=== PATIENT | male | born 1940 | race Caucasian/White ===

== ENCOUNTER 2017-01-23 10:08 | Emergency (ER) | payer BC, OTHER ==
[2017-01-23 10:27] VITALS: BP 123/74; PULSE 65; TEMP 97.9; BMI 26.6
--- NOTE | 2017-01-23 10:52 | PDOC ---
History of Present Illness - General Chief Complaint: Injury Stated Complaint: FALL/ SWOLLEN RT FINGER Time Seen by Provider: 01/23/17 10:46 History Source: Patient - History of Present Illness Initial Comments: 01/23/17 11:34 Pt. is a R hand dominant 76 y/o male with a PMH of HLD, presenting to the ED today c/o R 3rd finger juanis. Pt. states that he was walking and tripped on the sidewalk yesterday. He landed with his hand outstretched and landed on the finger. Denies LOC, head trauma, weakness or dizziness. Pt. states that he used Motrin and ice to help with the swelling. Past History - Travel Traveled outside of the country in the last 30 days: No Close contact w/someone who was outside of country & ill: No - Past Medical History Home Medications: Ambulatory Orders NK [No Known Home Medication] 01/23/17 Hypercholesterolemia: Yes - Psycho/Social/Smoking Cessation Hx Anxiety: No Suicidal Ideation: No Smoking History: Never smoked Have you smoked in the past 12 months: No If you are a former smoker, when did you quit?: 1981 Information on smoking cessation initiated: No Hx Alcohol Use: No Drug/Substance Use Hx: No Substance Use Type: Alcohol Review of Systems - Review of Systems Able to Perform ROS?: Yes Is the patient limited Cypriot proficient: No Constitutional: No: Chills, Fever, Weakness Musculoskeletal: Yes: Joint Pain (R 3rd finger swelling and pain), Joint Swelling (R 3rd Finger PIP swelling) Integumentary: Yes: Other (Swelling of R 3rd finger) *Physical Exam - Vital Signs Last Vital Signs Temp Pulse Resp BP Pulse Ox 97.9 F 65 14 123/74 98 01/23/17 10:17 01/23/17 10:17 01/23/17 10:17 01/23/17 10:01/23/17 10:17 - Physical Exam General Appearance: Yes: Nourished, Appropriately Dressed. No: Apparent Distress Extremity: positive: Normal Capillary Refill, Normal Range of Motion (Pt. 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 is a 76 y/o male with PMH of HLD, presenting with R 3rd finger swelling. Pt. has TTP of the R 3rd PIP joint with mild swelling around the area. Will obtain x-ray at this time to r/o fracture. Will medicate with Tylenol for pain. 01/23/17 12:14 X-Ray is negative at this time. Will discharge home at this time with a finger splint. Pt. instructed to ice the area and to use Motrin or Tylenol as needed for pain. Pt understands all discharge instructions and all questions were answered at this time. *DC/Admit/Observation/Transfer Diagnosis at time of Disposition: Finger pain, right - Discharge Dispostion Disposition: HOME Condition at time of disposition: Stable Admit: No - Patient Instructions Additional Instructions: You have swelling of your right finger. Your x-ray today was negative for any broken bones. You may use ibuprofen to help reduce the swelling. Ice the affected area as well. Follow up with your primary care doctor in one week. Return to the ED if you have any signs of infection such as fevers, chills, nausea, vomiting, if you have increased swelling or pain, or if there are any changes in your symptoms.
[2017-01-23] MEDS ORDERED: IBUPROFEN 600 MG TABLET (FP) PO ONE ×2 (11:22→11:35)
--- NOTE | 2017-01-24 10:26 | PDOC ---
Patient Follow-up (Call Back) - Post ED Follow - Up Condition at time of discharge: Stable Disposition at time of original discharge: HOME - Disposition Additional Instructions/Notes: Called patient and left message to call back and discuss radiology findings.
== END 2017-01-23 12:15 | disposition home or self-care (01) ==
LOC: JERFT 10:08
PROC: 2W3KX1Z Immobilization of Left Finger using Splint (ICD-10-PCS; principal; 2017-01-23)
DX: M79.644 Pain in right finger(s) (principal); W18.39XA Other fall on same level, initial encounter; Y93.01 Activity, walking, marching and hiking; Y92.480 Sidewalk as the place of occurrence of the external cause; Y99.8 Other external cause status
CPT/HCPCS: 73130-TC-RT; 99281-25